=== PATIENT | male | born 1970 | race African-American/Black ===

== ENCOUNTER 2017-02-05 23:59 | Emergency (ER) | payer OTHER ==
--- NOTE | ~2017-02-05 | CT2 ---
[facility] A Service of [facility] RADIOLOGY TEXT RESULTS PATIENT: MCKENNA CALL LOCATION: [facility] : 68 UNIT #: [id number] AGE: [address]: Serena Starks MD SEX: M ORDER DR: [id number] [facility]. [place], [place] [address] [id number] E MR#: [id number] Acc #: [id number] NAME: MCKENNA CALL : 1970 SEX: M STUDY DATE/TIME: 02/06/2017 3:45 UNIT: [facility] ROOM: STUDY DESCRIPTION: CT Abd and Pelv W Cont Attending Physician: Serena Starks M.D. Ordering Physician: Serena Starks M.D. Primary Care Physician: [facility] MEDICAL IMAGING REPORT This report is preliminary unless electronic signature is present EXAM CT abdomen and pelvis with contrast, 02/06/2017 HISTORY 46-year-old male in the ED complaining of bilateral back/flank pain beginning about [address] examination of the abdomen and pelvis with IV contrast. GI contrast was not ordered, limiting evaluation of the GI tract. This CT exam was performed with one or more of the following radiation dose reduction techniques: automatic exposure control, adjustment of mA and/or kV according to patient size, and iterative reconstruction. FINDINGS ABDOMEN: The patient has had prior GI tract surgery, including likely right hemicolectomy as well as sigmoid colon resection with primary anastomosis in the mid pelvis. Small bowel and colon are normal in caliber. The liver, pancreas and spleen are normal in size and appearance. The stomach is moderately distended with food, fluid and air. The kidneys are unobstructed. There is an indeterminate exophytic left mid renal mass measuring about 2.2 cm that is unchanged since 05/24/2014. This most likely represents a hyperdense cyst, but followup renal ultrasound examination is recommended for further characterization. Normal-caliber abdominal aorta. PELVIS FINDINGS: Bladder, prostate and rectum are within normal limits. No inguinal hernia. [facility] A Service of [facility] RADIOLOGY TEXT RESULTS PATIENT: MCKENNA CALL LOCATION: [facility] : 68 UNIT #: [id number] AGE: [address]: Serena Starks MD SEX: M ORDER DR: Dictated by... Chetan Alcaraz M.D. THIS IS AN ELECTRONICALLY VERIFIED REPORT Chetan Alcaraz M.D. at 02/06/2017 5:59 AM LANRE/rodney TD: 02/06/2017 05:10 JOB #: [id number] MEDICAL IMAGING REPORT Page 1 of 1 COPY
[2017-02-06 01:50] LABS: URINE SOURCE CLEAN CATCH
[2017-02-06 01:58] LABS: URINE BILIRUBIN NEG (NEG); URINE BLOOD TRACE (NEG); URINE COLOR YELLOW; URINE GLUCOSE NEG (NEG); URINE KETONE NEG (NEG); URINE LEUKOCYTE ESTERASE NEG (NEG); URINE NITRATE NEG (NEG); URINE PROTEIN NEG (NEG); URINE SPECIFIC GRAVITY 1.022 (1.003-1.035)
[2017-02-06 02:01] LABS: CULTURE INDICATED? NO; URINE APPEARANCE CLEAR; URINE BACTERIA AUWI NEG (NEGATIVE); URINE SQUAMOUS EPITHELIAL CELL NONE SEEN /[HPF]; UWBCS1 AUWI 0-2 (0-5)
[2017-02-06 02:14] LABS: ALBUMIN SERUM 4.6 g/dL (3.5-5.0); ALKALINE PHOSPHATASE 79 U/L (32-92); ALT (SGPT) 65 U/L (10-40); AST (SGOT) 56 U/L (10-42); BILIRUBIN,TOTAL 0.7 mg/dL (0.2-2.0); BLOOD UREA NITROGEN 15 mg/dL (9-23); BUN/CREATININE RATIO 13.63; CALCIUM SERUM 9.9 mg/dL (8.4-10.2); CARBON DIOXIDE 26 mmol/L (22-31); CHLORIDE 104 mmol/L (100-111); CREATININE SERUM 1.1 mg/dL (0.6-1.4); GLOM FILT RATE Estimated 92.2 mL/min (>60); GLUCOSE FASTING 123 mg/dL (70-110); LIPASE 17 U/L (22-51); POTASSIUM 3.5 mmol/L (3.5-5.1); PROTEIN TOTAL SERUM 8.3 g/dL (6.0-8.3); SODIUM 138 mmol/L (135-145)
[2017-02-06 02:17] LABS: BILIRUBIN, DIRECT <0.1 mg/dL (0.0-0.2); BILIRUBIN,INDIRECT 0.6 mg/dL (0.0-0.9)
[2017-02-06 02:52] LABS: BASOPHIL% 0.4 % (0-2.5); DIFF IND NO; EOSINOPHIL# 0.1 X10e3 (0-0.7); HEMATOCRIT 48.3 % (38.0-50.0); HEMOGLOBIN 15.7 gm/dL (13.0-16.0); LYMPHOCYTE# 3.4 X10e3 (1.0-3.5); LYMPHOCYTE% 44.3 % (17.0-45.0); MEAN CELL VOLUME 84.4 FL (83-96); MEAN CORPUSCULAR HEMOGLOBIN 27.5 PG (28-34); MEAN CORPUSCULAR HGB CONC 32.5 g/dL (30-36); MEAN PLATELET VOLUME 9.1 FL (6.5-11.5); MONOCYTE# 0.6 X10e3 (0-1.0); MONOCYTE% 8.4 % (3.0-12.0); NEUTROPHIL# 3.5 X10e3 (1.5-7.1); NEUTROPHIL% 45.9 % (40-75); PLATELET COUNT 175 X10e3 (140-420); RED BLOOD COUNT 5.72 X10e (3.90-5.60); RED CELL DISTRIBUTION WIDTH 13.4 % (11.0-15.5); WHITE BLOOD COUNT 7.7 X10e3 (4.0-10.5)
[2017-02-06 03:36] LABS: AMPHETAMINE NEG (NEG); BARBITURATES NEG (NEG); BENZODIAZEPINES NEG (NEG); COCAINE NEG (NEG); MARIJUANA NEG (NEG); OPIATES NEG (NEG); TRICYCLIC ANTIDEPRESSANTS NEG (NEG); U METHADONE NEG (NEG)
== END 2017-02-06 05:17 | disposition home or self-care (01) ==
LOC: CED 23:59
PROVIDERS: Emergency Medicine
DX: M54.5 Low back pain (principal); G89.29 Other chronic pain; K31.89 Other diseases of stomach and duodenum; I10 Essential (primary) hypertension; J45.909 Unspecified asthma, uncomplicated
CPT/HCPCS: 36415; 74177; 80048; 80076; 80307; 81003; 83690; 85025; 96374; 96375; 99284; J1170; J1885; J2930; Q9967

== ENCOUNTER → 2017-04-23 | Outpatient (CLI) | payer OTHER ==
--- NOTE | ~2017-04-23 | CR63 ---
[facility] A Service of [facility] & [facility] RADIOLOGY TEXT RESULTS PATIENT: MCKENNA CALL LOCATION: [facility] : 68 UNIT #: [id number] AGE: [address]: Marina Wilkes SEX: M ORDER DR: [id number] [facility] [address] [place], [place] [address] [id number] O MR#: [id number] Acc #: [id number] NAME: MCKENNA CALL : 1970 SEX: M STUDY DATE/TIME: 04/23/2017 15:47 UNIT: [facility] ROOM: STUDY DESCRIPTION: CR Chest 2 View Attending Physician: Marina Wilkes A.P.R.N. Referring Physician: Marina Wilkes A.P.R.N. Ordering Physician: Marina Wilkes A.P.R.N. Primary Care Physician: [facility] MEDICAL IMAGING REPORT This report is preliminary unless electronic signature is present EXAM Chest, PA and lateral; 04/23/2017. HISTORY Cough. Moderate persistent asthma. Uncomplicated. Chest congestion and shortness of breath for 2 weeks. Benign essential hypertension. FINDINGS PA and lateral examination of the chest upright shows a good expansion of the parenchyma with a normal distribution of the pulmonary vascularity. There is no indication of congestion, effusion, infiltrate, tumor, or nodular density. The pleural reflections and diaphragmatic contours are normal. The cardiac silhouette and mediastinal anatomy is within normal limits. IMPRESSION Normal PA and lateral chest. Dictated by... El Wells M.D. THIS IS AN ELECTRONICALLY VERIFIED REPORT El Wells M.D. at 04/24/2017 2:25 PM GILMA/amirah TD: 04/23/2017 18:08 JOB #: [id number] MEDICAL IMAGING REPORT Page 1 of 1 COPY
== END | disposition home or self-care (01) ==
LOC: CRAD 15:33
DX: J45.40 Moderate persistent asthma, uncomplicated (principal); R05 Cough; J30.1 Allergic rhinitis due to pollen; J30.89 Other allergic rhinitis; T50.995A Adverse effect of other drugs, medicaments and biological substances, initial encounter
CPT/HCPCS: 71020

== ENCOUNTER → 2017-06-24 | Outpatient (CLI) | payer OTHER ==
--- NOTE | ~2017-06-24 | MR113 ---
[facility] A Service of [facility] & [facility] RADIOLOGY TEXT RESULTS PATIENT: MCKENNA CALL LOCATION: [facility] : 68 UNIT #: [id number] AGE: [address]: Romero Duran MD SEX: M ORDER DR: [id number] [facility] [address] [place], [place] [address] [id number] O MR#: [id number] Acc #: [id number] NAME: MCKENNA CALL : 1970 SEX: M STUDY DATE/TIME: 06/24/2017 20:38 UNIT: [facility] ROOM: STUDY DESCRIPTION: MR Lumbar Wo Contrast Attending Physician: Romero Duran M.D. Referring Physician: Romero Duran M.D. Ordering Physician: Romero Duran M.D. [facility] This report is preliminary unless electronic signature is present. EXAM MRI of the lumbar spine without contrast dated 06/24/2017 COMPARISON MRI lumbar spine without contrast dated 07/13/2016 HISTORY Low back pain for 1.5 years extending into the right upper buttock region. Patient cannot lay down and it has worsened. TECHNIQUE Multisequence, multiplanar imaging of the lumbar spine was obtained without contrast. FINDINGS Vertebral body heights and alignment are preserved. Edematous endplate change is noted at inferior L4, superior L3. It is worse at L4 with likely a developing Schmorl's node, worse since prior study. Degenerative disc signal losses from L2-L3 to L5-S1 levels. Conus terminates at L1 extending towards L1-L2 disc. Signal of conus and cauda equina are within normal limits. There is fatty signal 1.2 cm S1 and a smaller lesion in S3 segments. They are probably nonaggressive lesions like hemangioma based on statistics. L1-L2: Minimal right facet change, but otherwise unremarkable. L2-L3: Small left foraminal to extraforaminal protrusion without neural foraminal narrowing or canal stenosis. L3-L4: Mild disc bulge without canal stenosis or neural foraminal narrowing. Mild right facet change. L4-L5: Moderate concentric disc bulge with right to left central annular STS. [facility] A Service of [facility] & [facility] RADIOLOGY TEXT RESULTS PATIENT: MCKENNA CALL LOCATION: [facility] : 68 UNIT #: [id number] AGE: [address]: Romero Duran MD SEX: M ORDER DR: fissure and small protrusion. Borderline size canal is seen with mild inferior bilateral neural foraminal narrowing. L5-S1: Mild disc bulge with tiny left central annular fissure with likely small protrusion. It barely touches the left S1 nerve root. Stable. IMPRESSION 1. Given the differences in slice selection, there is no significant worsening of the degenerative changes at various levels. It is relatively worse at L4-L5, followed by L5-S1. 2. Concentric disc bulge with superimposed right to left central small protrusion with annular fissure and borderline size to mild canal stenosis and mild inferior bilateral neural foraminal narrowing are at L4-L5. 3. Inferior L4 edematous endplate change has worsened in the interval. 4. Nonaggressive fatty signal lesions are in S1 and S3 segment, likely hemangioma, stable. Dictated by... Narda Gimenez M.D. THIS IS AN ELECTRONICALLY VERIFIED REPORT Narda Gimenez M.D. at 06/26/2017 2:50 PM CPR/to TD: 06/25/2017 15:21 JOB #: [id number] MRI CENTER REPORT Page 1 of 1 COPY
== END | disposition home or self-care (01) ==
LOC: CMRI 13:00
DX: M51.16 Intervertebral disc disorders with radiculopathy, lumbar region (principal); M48.06 Spinal stenosis, lumbar region
CPT/HCPCS: 72148